=== PATIENT | female | born 1985 | race Hispanic/Latino ===

== ENCOUNTER 2024-11-28 09:45 | Emergency (ER) | payer OTHER, SELFPAY ==
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
[2024-11-28 10:57] VITALS: BP 146/89; TEMP 97.8; O2SAT 98
== END 2024-11-28 10:23 | disposition home or self-care (01) ==
LOC: ER 09:45
DX: M79.602 Pain in left arm (principal); V49.49XA Driver injured in collision with other motor vehicles in traffic accident, initial encounter
CPT/HCPCS: 99282